=== PATIENT | female | born 1995 | race Caucasian/White ===

== ENCOUNTER → 2017-01-30 | Outpatient (CLI) | payer BC ==
--- NOTE | 2017-01-30 11:05 | US ---
EXAMINATION TYPE: US OB anatomy transabd DATE OF EXAM: 01/30/2017 10:43 AM COMPARISON: In pacs HISTORY: Large for dates, 5, para 2, 2 TECHNIQUE: Transabdominal (TA) EXAM MEASUREMENTS: GESTATIONAL AGE / DATING Physician Established: (34 weeks/6 days) EDC: 03/07/2017 Dates by LMP: (34 weeks/6 days) EDC: 03/07/2017 Dates by First Scan: (35 weeks/0 days) EDC: 03/06/2017 Dates by Current Scan for: (34 weeks/0 days) EDC: 03/13/2017 SURVEY IUP: Single PLACENTA: Fundal / Posterior PREVIA: No previa JAYASHREE: 15.1 cm Normal CERVICAL LENGTH (transabdominal: norm > 3.0cm): 3.4 cm BIOMETRY PRESENTATION: Vertex LIE: Longitudinal BPD: 8.5 cm 34 weeks / 3 days HC: 31.0 cm 34 weeks / 4 days AC: 30.0 cm 34 weeks / 0 days FL: 6.7 cm 34 weeks / 3 days ESTIMATED WEIGHT IN GRAMS: 2373 grams ESTIMATED WEIGHT IN LBS/OZS: 5 lbs. 4 oz. WEIGHT PERCENTAGE BASED ON ESTABLISHED DATE: 28 % HC/AC: 1.03 Normal FL/AC: 22.29 Normal HEART RATE: 157 bpm RHYTHM: Normal ANATOMY SEEN (within normal limits): Midline Falx Cavus Septi Pellucidi Four Chamber Heart Outflow tracts: LVOT/RVOT Stomach Situs Nose / Lips Diaphragm Kidneys (bilateral) Bladder Cord Insert Three Vessel Cord ANATOMY NOT SEEN: Due to advanced age, 3rd trimester * Lateral Vent (< 1 cm) cm * Cisterna Magna (< 1.1 cm) cm * Nuchal Fold (< 0.6 cm) cm * Cerebellum (varies with age) cm Choroid Plexus (bilateral) Longitudinal Spine Transverse Spine Arms (bilateral) Legs (bilateral) IMPRESSION: Viable single IUP measuring 34 weeks 0 days with a heart rate of 157bpm and an estimate d delivery date of 03/13/2017.
== END ==
LOC: RADUSWWP 10:13
PROVIDERS: ATTEND Obstetrics & Gynecology
DX: O36.63X0 Maternal care for excessive fetal growth, third trimester, not applicable or unspecified (principal)
CPT/HCPCS: 76811

== ENCOUNTER 2017-03-07 13:25 | Inpatient (IN) | payer BC, OTHER ==
[2017-03-09] MEDS ORDERED: LIDOCAINE 1% (PF) 10 MG/ML (30 ML SDV) SQ PRN (06:18)
[2017-03-09] MEDS ORDERED: TERBUTALINE 1 MG/ML VIAL SQ PRN (06:18)
[2017-03-09] MEDS ORDERED: AMPICILLIN 2,000 MG in SODIUM CHLORIDE 0.9% 100 ML IVPB STA (06:18)
[2017-03-09] MEDS ORDERED: METHYLERGONOVINE 0.2 MG/ML 1 ML AMP IM PRN (06:18)
[2017-03-09] MEDS ORDERED: OXYTOCIN 10 UNIT/ML 1 ML VIAL IM PRN (06:18)
[2017-03-09] MEDS ORDERED: CARBOPROST TROMETHAMINE 250 MCG/ML 1 ML AMP IM PRN (06:18)
[2017-03-09] MEDS ORDERED: OXYTOCIN 30 UNITS/500 ML NS 30 UNIT in SALINE 1 500ML.BAG IV SCH ×2 (06:18→14:15)
--- NOTE | 2017-03-09 06:21 | P.HPOB ---
History of Present Illness H&P Date: 03/09/17 Chief Complaint: Patient is presenting for requested induction of labor This patient is a kelle 21-year-old 5 para 2 female estimated date of confinement 03/07/2017 estimated gestational age 40-2/7 weeks who presents to labor and delivery for requested induction of labor. Patient's care has been uncomplicated. Review of Systems Constitutional: Denies chills, Denies fever Ears, nose, mouth and throat: Denies headache, Denies sore throat Cardiovascular: Denies chest pain, Denies shortness of breath Respiratory: Denies cough Gastrointestinal: Reports heartburn Genitourinary: Reports Menstruation: Reports amenorrhea Musculoskeletal: Denies myalgias Integumentary: Denies pruritus, Denies rash Neurological: Denies numbness, Denies weakness Psychiatric: Denies anxiety, Denies depression Endocrine: Denies fatigue, Denies weight change Past Medical History Past Medical History: No Reported History History of Any Multi-Drug Resistant Organisms: None Reported Additional Past Surgical History / Comment(s): Patient's had a D&C in the past. Past Anesthesia/Blood Transfusion Reactions: No Reported Reaction Past Psychological History: No Psychological Hx Reported Smoking Status: Never smoker Past Alcohol Use History: None Reported Past Drug Use History: None Reported Medications and Allergies Home Medications Medication Instructions Recorded Confirmed Type Pnv with Ca,No.72/Iron/FA 1 each PO 03/09/17 History [ Plus Tablet] Allergies Allergy/AdvReac Type Severity Reaction Status Date / Time No Known Allergies Allergy Verified 03/09/17 06:17 Exam - OBG Physical Exam Abdomen: bowel sounds normal, no diffuse tenderness, no bruit present, no guarding noted, no hepatomegaly, no splenomegaly, no mass Vulva: both: normal Vagina: normal moisture, no discharge Cervix: no lesion (Cervix in the office is 2-3 cm dilated.), no discharge Uterus: enlarged (Fundal height is consistent with a term .) Results blood work shows she is O negative, rubella immune, RPR nonreactive, HIV nonreactive, hepatitis B was negative, Glucola was normal, group B strep was negative, however the patient does have a history of positive strep in a previous . Ultrasounds have been normal. Patient was given RhoGAM on December 10. Assessment and Plan (1) Third trimester Narrative/Plan: This is a pleasant 21-year-old 5 para 2 female 40-2/7 weeks gestation who is admitted to labor and delivery for requested induction of labor. Patient does have a history of positive strep in a previous although she is negative this . Plan is antibiotic prophylaxis and induction of labor. We anticipate a vaginal delivery. Status: Acute (2) Elective induction of labor planned Status: Acute (3) Rh negative status during Status: Acute
[2017-03-09] MEDS: LACTATED RINGERS 1,000 ML IV SCH ×3 (06:33→11:49)
[2017-03-09 06:36] LABS: Basophils % (A) 0 %; CH 32.8; CHCM 34.8; Eosinophils # (A) 0.1 k/uL (0-0.7); Eosinophils % (A) 1 %; HCT 36.8 % (34.0-46.0); HDW 2.77; Luc # (Auto) 0.21; Luc % (Auto) 3; Lymphocytes # (A) 2.9 k/uL (1.0-4.8); Lymphocytes % (A) 42 %; MCH 33.4 pg (25.0-35.0); MCHC 35.3 g/dL (31.0-37.0); MCV 94.6 fL (80.0-100.0); Mean Platelet Volume 7.2; Monocytes # (A) 0.4 k/uL (0-1.0); Monocytes % (A) 6 %; Neutrophils # (A) 3.3 k/uL (1.3-7.7); Neutrophils % (A) 48 %; RBC 3.89 m/uL (3.80-5.40); RDW 13.3 % (11.5-15.5); WBC 6.9 k/uL (3.8-10.6); WBC (Perox) 6.91
[2017-03-09 08:44] VITALS: BMI 41.5
[2017-03-09] MEDS ORDERED: fentaNYL (PF) 50 MCG/ML 5 ML AMP ONE (09:20)
[2017-03-09] MEDS ORDERED: SODIUM CHLORIDE 0.9% 100 ML BAG ONE (09:20)
[2017-03-09] MEDS ORDERED: BUPIVACAINE (PF) 0.25% 30 ML VIAL ONE (09:20)
[2017-03-09] MEDS: AMPICILLIN 1,000 MG in SODIUM CHLORIDE 0.9% 50 ML IVPB SCH ×2 (10:45→15:22)
[2017-03-09] MEDS ORDERED: HYDROCORTISONE 2.5% RECTAL CREAM 30 GM TUBE RECTAL PRN (13:52)
[2017-03-09] MEDS ORDERED: Rhogam IMMUNE GLOBULIN 1,500 UNIT/1 ML IM ONE (13:52)
[2017-03-09] MEDS ORDERED: Acetaminophen-Codeine 300-30mg TAB PO PRN ×2 (13:52)
[2017-03-09] MEDS ORDERED: IBUPROFEN 600 MG TAB PO PRN (13:52)
[2017-03-09] MEDS ORDERED: SIMETHICONE 80 MG CHEWABLE PO PRN (13:52)
[2017-03-09] MEDS ORDERED: LANOLIN CREAM 5 GM TUBE TOPICAL PRN (13:52)
[2017-03-09] MEDS ORDERED: diphenhydrAMINE 25 MG CAP PO PRN (13:52)
[2017-03-09] MEDS ORDERED: ZOLPIDEM 5 MG TAB PO PRN (13:52)
[2017-03-09] MEDS ORDERED: BENZOCAINE/MENTHOL SPRAY 1 GM/SPRAY AEROSOL TOPICAL PRN (13:52)
[2017-03-09] MEDS ORDERED: WITCH HAZEL 1 EACH MED..PAD TOPICAL PRN (13:52)
[2017-03-09] MEDS ORDERED: diphenhydrAMINE 50 MG/ML 1 ML VIAL IVP PRN (13:52)
[2017-03-09] MEDS: SENNOSIDES-DOCUSATE SODIUM 1 EACH TAB PO SCH ×2 (14:00→21:54)
[2017-03-09] MEDS: ACETAMINOPHEN TAB 325 MG TAB PO PRN ×2 (16:20→21:55)
--- NOTE | 2017-03-09 17:16 | P.PROBDLV ---
Vaginal Delivery Note - . Vaginal Delivery Note: Normal vaginal delivery viable female Apgars 9 and 9 delivery time is 1329 hrs. Please see dictated admission history and physical in this patient's admission. Brief summary is a pleasant 21-year-old 5 para 2 female 40-2/7 weeks gestation who is admitted for elective induction of labor. Patient has a history of positive strep in a previous therefore is given ampicillin on admission. Patient is artificial rupture membranes at 3 cm dilated and Pitocin augmentation of labor per protocol. Patient's labor progresses normally and she does request an epidural for pain control. Patient then gets to complete and pushes the head to the perineum. Posterior perineum was supported and we have controlled delivery of 's head over the intact perineum. Mouth and nares are bulb suctioned. There is a tight nuchal cord which is reduced. Gentle downward traction we then have deliver the anterior and posterior shoulder and rest this 's body. This is a vigorous viable female infant Apgars are 9 and 9 delivery time is 1329 hrs. After delivery of the infant the umbilical cord is doubly clamped and cut. Cord blood is obtained for Rh status. is late on the mother's abdomen. The placenta was then spontaneously delivered intact. Estimated blood loss is 200 mL. There are no lacerations and no repairs required. All counts are correct 3. There are no complications. and mother are stable in the delivery room.
--- NOTE | 2017-03-10 05:51 | P.PNOBGVD ---
Subjective - Subjective Patient reports: Reports appetite normal, Reports voiding normally, Reports pain well controlled, Reports ambulating normally : doing well Objective - Latest Vital Signs Latest vital signs: Vital Signs Temp Pulse Resp BP Pulse Ox 03/10/17 04:00 98.0 F 56 L 16 112/45 03/10/17 00:00 98.7 F 82 18 112/63 03/09/17 20:00 98.6 F 82 18 111/62 03/09/17 15:39 91 18 126/67 98 03/09/17 15:09 97.2 F L 100 18 117/64 98 03/09/17 14:39 89 18 123/56 03/09/17 14:24 97.4 F L 104 H 18 127/75 03/09/17 14:09 107 H 18 126/70 03/09/17 13:54 111 H 18 135/62 97 03/09/17 13:39 97.6 F 108 H 18 124/58 03/09/17 06:19 96.2 F L 94 18 125/77 98 Intake and Output 03/09/17 03/09/17 03/10/17 14:59 22:59 06:59 Intake Total 600 Output Total 200 1 Balance -200 600 -1 Intake: Oral 600 Output: Urine 1 Estimated Blood Loss 200 Other: # Voids 1 2 - Exam Lungs: bilateral: normal Chest: Normal S1, Normal S2 Extremities: Present: normal Abdomen: Present: normal appearance, soft Uterus: Present: normal, firm Assessment and Plan (1) Third trimester Narrative/Plan: day #1. Patient is resting without complaints and wishes to go home. Vital signs are stable she is afebrile. Uterus is firm nontender she's having normal lochia. My impression this is a normal course. Patient appears to be stable for discharge home. Plan is to continue routine care discharge home later today. Current Visit: Yes Status: Acute Code(s): Z33.1 - STATE, INCIDENTAL SNOMED Code(s): 80105958 (2) Elective induction of labor planned Current Visit: Yes Status: Acute Code(s): RDD9800 - SNOMED Code(s): 832534327 (3) Rh negative status during Current Visit: Yes Status: Acute Code(s): O09.899 - SUPERVISION OF OTHER HIGH RISK PREGNANCIES, UNSP TRIMESTER SNOMED Code(s): 497727856
--- NOTE | 2017-03-10 05:52 | P.DS ---
Providers Date of admission: 03/09/17 06:04 Expected date of discharge: 03/10/17 Attending physician: Bucky Meléndez Primary care physician: Stated None - Discharge Diagnosis(es) (1) Third trimester Current Visit: Yes Status: Acute (2) Elective induction of labor planned Current Visit: Yes Status: Acute (3) Rh negative status during Current Visit: Yes Status: Acute Hospital Course: Please see dictated H&P for intimate details of this patient's admission. Brief summary this is a pleasant 21-year-old 5 para 2 female 40-2/7 weeks gestation who is admitted to labor and delivery for requested induction of labor. Patient is admitted has uncomplicated induction of labor goes on to have a vaginal delivery viable female infant. Please see dictated delivery note. day 1 patient without complaints and wishes to go home. Patient is discharged home follow up with me in 6 weeks. Procedures: Induction of labor and normal vaginal delivery. Patient Condition at Discharge: Good Plan - Discharge Summary New Discharge Prescriptions: Acetaminophen-Codeine 300-30mg [Tylenol w/codeine #3] 1 - 2 each PO Q4HR PRN # 30 tab PRN Reason: Mild Pain exceeding Tylenol Ibuprofen [Motrin] 600 mg PO Q6HR PRN #40 tab PRN Reason: Mild Pain Or Fever >= 100.5 Discharge Medication List Pnv with Ca,No.72/Iron/FA [ Plus Tablet] 1 each PO 03/09/17 [History] Acetaminophen-Codeine 300-30mg [Tylenol w/codeine #3] 1 - 2 each PO Q4HR PRN # 30 tab 03/10/17 [Rx] Ibuprofen [Motrin] 600 mg PO Q6HR PRN #40 tab 03/10/17 [Rx] Follow up Appointment(s)/Referral(s): Bucky Meléndez MD [STAFF PHYSICIAN] - 6 Weeks Patient Instructions/Handouts: Vaginal Delivery (DC) Activity/Diet/Wound Care/Special Instructions: No intercourse or anything per vagina for 6 weeks. Please call if any fever, chills, excessive vaginal bleeding, and/or abdominal pain. Discharge Disposition: HOME SELF-CARE
[2017-03-10 08:47] VITALS: BP 103/62; PULSE 72; RESP 18; TEMP 97.6
[2017-03-10] MEDS: SENNOSIDES-DOCUSATE SODIUM 1 EACH TAB PO SCH (08:47)
== END 2017-03-10 14:57 | disposition home or self-care (01) | DRG 775 ==
LOC: 4FBP 03-09 06:04
PROVIDERS: ADMIT Obstetrics & Gynecology; ATTEND Obstetrics & Gynecology
PROC: 10E0XZZ Delivery of Products of Conception, External Approach (ICD-10-PCS; principal; 2017-03-09)
PROC: 3E0234Z Introduction of Serum, Toxoid and Vaccine into Muscle, Percutaneous Approach (ICD-10-PCS; 2017-03-09)
DX: O26.893 Other specified pregnancy related conditions, third trimester (principal); O69.1XX0 Labor and delivery complicated by cord around neck, with compression, not applicable or unspecified; Z37.0 Single live birth; Z3A.40 40 weeks gestation of pregnancy; Z67.91 Unspecified blood type, Rh negative
CPT/HCPCS: 85025; 85461; 88307